=== PATIENT | male | born 1985 | race Caucasian/White ===

== ENCOUNTER 2020-07-22 13:54 | Emergency (ER) | payer SELFPAY ==
[~2020-07-22] VITALS: Ht 188 cm; Wt 90.7 kg
[2020-07-22 14:51] VITALS: BP 119/87
--- NOTE | 2020-07-22 14:55 | NUR ---
Patient discharged to home in stable condition. Written and verbal after care instructions given. Patient verbalizes understanding of instructions. Stressed follow up or return to ER for worsening s/s.
== END 2020-07-22 14:55 | disposition home or self-care (01) ==
LOC: ER 13:54
DX: Z76.0 Encounter for issue of repeat prescription (principal); F41.9 Anxiety disorder, unspecified
CPT/HCPCS: A4663

== ENCOUNTER 2024-11-28 03:10 | Inpatient (IN) | payer MEDICAID, OTHER ==
[~2024-11-28] VITALS: Ht 182.9 cm; Wt 90.7 kg
[2024-11-28 05:50] LABS: BASOPHILS # (AUTO) 0.1 K/UL (0.0-0.2); BASOPHILS % (AUTO) 0.6 % (0.0-2.0); EOSINOPHILS # (AUTO) 0.2 K/uL (0.0-0.7); EOSINOPHILS % (AUTO) 1.4 % (0.0-7.0); HEMATOCRIT 36.2 % (36.7-47.1); HEMOGLOBIN 12.3 g/dL (12.5-16.3); LYMPHOCYTES # (AUTO) 1.7 K/uL (0.8-4.8); LYMPHOCYTES % (AUTO) 9.9 % (20.5-51.5); MEAN CORPUSCULAR HEMOGLOBIN 27.9 uug (23.8-33.4); MEAN CORPUSCULAR HGB CONC 34 g/dL (32.5-36.3); MEAN CORPUSCULAR VOLUME 81.8 fL (73.0-96.2); MONOCYTES # (AUTO) 1.1 K/uL (0.1-1.30); MONOCYTES % (AUTO) 6.1 % (0.0-11.0); NEUTROPHILS # (AUTO) 14.4 K/uL (1.8-8.9); PLATELET COUNT (AUTO) 363 K/uL (152-348); RED BLOOD CELL COUNT(AUTO) 4.43 MIL/uL (4.06-5.63); RED CELL DISTRIBUTION WIDTH 13.3 % (12.1-16.2); WHITE BLOOD COUNT (AUTO) 17.6 K/uL (3.6-10.2)
[2024-11-28] MEDS ORDERED: VANCOMYCIN IV 200 ML ONE (05:51)
[2024-11-28] MEDS ORDERED: PIPERACILLIN/TAZOBACTAM/D5W 50 ML IV ONE (05:51)
[2024-11-28 06:00] LABS: DIFFERENTIAL COMMENT 1
[2024-11-28 06:02] LABS: CARBON DIOXIDE 28 mmol/L (21-32); CHLORIDE 103 mmol/L (98-107); CREATININE 0.7 mg/dL (0.6-1.3); GLUCOSE 103 mg/dL (74-106); POTASSIUM 3.9 mmol/L (3.5-5.1); SODIUM SERUM 139 mmol/L (136-145); UREA NITROGEN, BLOOD 13 mg/dL (7-18)
[2024-11-28] MEDS: PIPERACILLIN SODIUM/TAZOBACTAM 3.375 G in IV DEXTROSE 5% 50 ML IV ONE (06:04)
[2024-11-28] MEDS: IV NORMAL SALINE 1000 ML BAG IV ONE (06:05)
[2024-11-28 06:08] LABS: ALANINE AMINOTRANSFERASE 25 U/L (16-63); ALBUMIN 3.8 g/dL (3.4-5.0); ALKALINE PHOSPHATASE 75 U/L (50-136); ASPARTATE AMINOTRANSFERASE 15 U/L (15-37); BILIRUBIN,DIRECT 0.3 mg/dL (0.0-0.2); BILIRUBIN,TOTAL 0.9 mg/dL (0.2-1.0); TOTAL PROTEIN, SERUM 7.6 g/dL (6.4-8.2)
[2024-11-28] MEDS ORDERED: ONDANSETRON 4 MG/2 ML VIAL ONE (06:09)
[2024-11-28] MEDS ORDERED: HYDROMORPHONE 1 MG/1 ML DISP.SYRIN ONE (06:09)
[2024-11-28] MEDS: ONDANSETRON 4 MG/2 ML VIAL IV ONE (06:13)
[2024-11-28] MEDS: HYDROMORPHONE 1 MG/1 ML DISP.SYRIN IV ONE (06:13)
[2024-11-28] MEDS: VANCOMYCIN IV 1,000 MG in IV DEXTROSE 5% 250 ML IV ONE (06:49)
[2024-11-28] MEDS ORDERED: KETOROLAC TROMETHAMINE 15 MG INJ ONE (08:28)
[2024-11-28] MEDS: KETOROLAC TROMETHAMINE 15 MG INJ IVP ONE (08:33)
[2024-11-28 09:26] VITALS: BP 128/77; TEMP 98.4; O2SAT 94
[2024-11-28] MEDS ORDERED: TERBINAFINE 250 MG TABLET PO SCH (12:30)
[2024-11-28] MEDS ORDERED: REMEDY ESSENTIAL ZINC PASTE 113 GM TP PRN (12:30)
[2024-11-28] MEDS ORDERED: ONDANSETRON 4 MG/2 ML VIAL IV PRN (12:30)
[2024-11-28] MEDS ORDERED: MAGNESIUM HYDROXIDE 30 ML LIQUID UDC PO PRN (12:30)
[2024-11-28] MEDS ORDERED: ACETAMINOPHEN 325 MG TABLET PO PRN (12:30)
[2024-11-28] MEDS: CLOTRIMAZOLE 1% CREAM 30 GM TUBE TOP SCH (14:09)
[2024-11-28] MEDS: ENOXAPARIN SODIUM 40 MG/0.4 ML DISP.SYRIN SQ SCH (14:09)
[2024-11-28] MEDS: PIPERACILLIN SODIUM/TAZOBACTAM 3.375 G in IV DEXTROSE 5% 100 ML IV SCH (14:10)
[2024-11-28 15:20] VITALS: BP 121/71; TEMP 98.2; O2SAT 95
[2024-11-28] MEDS: VANCOMYCIN IV 1,250 MG in IV DEXTROSE 5% 250 ML IV SCH (15:31)
[2024-11-28] MEDS ORDERED: PIPERACILLIN SODIUM/TAZOBACTAM 3.375 G in IV DEXTROSE 5% 50 ML IV SCH (18:00)
[2024-11-28 19:45] VITALS: BP 122/76; TEMP 98.2; O2SAT 100
[2024-11-29] MEDS: HYDROCODONE/APAP 10-325 MG TABLET PO PRN (05:10)
[2024-11-29 06:10] VITALS: BP 139/79; O2SAT 97
[2024-11-29 06:14] LABS: BASOPHILS # (AUTO) 0.1 K/UL (0.0-0.2); BASOPHILS % (AUTO) 0.4 % (0.0-2.0); EOSINOPHILS # (AUTO) 0.3 K/uL (0.0-0.7); EOSINOPHILS % (AUTO) 1.8 % (0.0-7.0); HEMATOCRIT 34.8 % (36.7-47.1); HEMOGLOBIN 11.8 g/dL (12.5-16.3); LYMPHOCYTES # (AUTO) 1.1 K/uL (0.8-4.8); LYMPHOCYTES % (AUTO) 6.7 % (20.5-51.5); MEAN CORPUSCULAR HEMOGLOBIN 27.9 uug (23.8-33.4); MEAN CORPUSCULAR HGB CONC 34 g/dL (32.5-36.3); MEAN CORPUSCULAR VOLUME 82.4 fL (73.0-96.2); MONOCYTES # (AUTO) 1.1 K/uL (0.1-1.30); MONOCYTES % (AUTO) 6.3 % (0.0-11.0); NEUTROPHILS # (AUTO) 14.3 K/uL (1.8-8.9); NEUTROPHILS % (AUTO) 84.8 % (38.5-71.5); PLATELET COUNT (AUTO) 305 K/uL (152-348); RED BLOOD CELL COUNT(AUTO) 4.22 MIL/uL (4.06-5.63); RED CELL DISTRIBUTION WIDTH 13.6 % (12.1-16.2); WHITE BLOOD COUNT (AUTO) 16.8 K/uL (3.6-10.2)
[2024-11-29] MEDS: PANTOPRAZOLE SODIUM 40 MG TABLET.DR PO SCH (06:14)
[2024-11-29 06:22] LABS: DIFFERENTIAL COMMENT 1
[2024-11-29] MEDS: TERBINAFINE 250 MG TABLET PO SCH (10:17)
[2024-11-29 11:04] VITALS: BP 103/59; TEMP 98.2; O2SAT 96
[2024-11-29] MEDS ORDERED: TERB250T52 PO (12:57)
[2024-11-29] MEDS ORDERED: CLOT30CR24 TOP (12:57)
[2024-11-29] MEDS ORDERED: IBUP-1955 PO (12:57)
[2024-11-29] MEDS ORDERED: DOXY100C5 PO (13:00)
[2024-11-29] MEDS: DOXYCYCLINE HYCLATE 100 MG TABLET PO SCH (15:02)
[2024-11-29 15:50] VITALS: BP 106/74; TEMP 98.6; O2SAT 99
== END 2024-11-29 18:30 | disposition home or self-care (01) | DRG 383 ==
LOC: ER 03:10 → MEDSURG3 08:38
PROVIDERS: ADMIT Nurse Practitioner Acute Care; ATTEND Nurse Practitioner Acute Care
DX: L03.116 Cellulitis of left lower limb (principal); B35.3 Tinea pedis; L03.032 Cellulitis of left toe
CPT/HCPCS: 36415; 71045; 73620; 83605; 84484; 85025; 85730; 87040; A4606; A4663; G0378; J1171; J1650; J1885; J2405; J2543; J3370; J7040; J7050